=== PATIENT | female | born 1995 | race Caucasian/White ===

== ENCOUNTER 2019-07-03 00:20 | Outpatient (CLI) | payer BC, SELFPAY ==
--- NOTE | 2019-07-03 15:50 | DI.RAD_ITS ---
EXAM: XR SCOLIOSIS T-L SPINE CLINICAL HISTORY: BACK DISORDER M53.9 TECHNIQUE: Multi view scoliosis series was obtained. There is a mild left convex thoracolumbar scol iosis. No underlying bony deformity node noted in the thoracolumbar region. Intervertebral disc spa destinee are well maintained. The scoliosis is estimated at 10 degrees. COMPARISON: No exams were available for comparison FINDINGS: IMPRESSION:
--- NOTE | 2019-07-03 15:50 | DI.RAD_ITS ---
EXAM: XR CERVICAL SPINE COMP 4-5V INDICATION: BACK DISORDER M53.9,. COMPARISON: No exams were available for comparison TECHNIQUE: 2D digital imaging was performed. FINDINGS: The alignment is normal. The vertebral bodies and disc spaces are well maintained. There are no s ignificant degenerative changes. There is no prevertebral soft tissue swelling. IMPRESSION: Negative cervical spine.
== END 2019-07-03 00:40 ==
PROVIDERS: PCP Nurse Practitioner Family; Visit Provider Nurse Practitioner Family
DX: M54.2 Cervicalgia (principal); M41.85 Other forms of scoliosis, thoracolumbar region
CPT/HCPCS: 72081; 72050

== ENCOUNTER 2023-06-20 03:18 | Outpatient (CLI) | payer BC, SELFPAY ==
[2023-06-20 11:44] LABS: Panorama Kit Sent via Fed Ex
[2023-06-20 11:47] LABS: Abs Immature Grans 0.02 10^3/uL (0.0-0.06); Absolute Basophil Count 0.01 10^3/uL (0.0-0.2); Absolute Eosinophil Count 0.03 10^3/uL (0.0-0.7); Absolute Monocyte Count 0.31 10^3/uL (0.1-0.8); Absolute Neutrophil Count 3.52 10^3/uL (1.2-6.7); Basophils % 0.2; Eosinophils % 0.6; HCT 36.9 % (36.0-46.0); HGB 12.3 g/dL (11.2-15.7); Immature Grans % 0.4; Lymphocytes % 27.8; MCH 28.5 pg (27.0-33.0); MCHC 33.3 % (32.0-36.0); MCV 85 fL (80-95); MPV 10.2 fL (8.0-11.0); Monocytes % 5.8; Neutrophils % 65.2; Platelet Count 167 10^3/uL (130-400); RBC 4.32 10^6/uL (3.93-5.22); RDW 12.9 % (11.7-14.6); RDW-SD 39.7 fL; WBC 5.39 10^3/uL (4.4-10.8)
[2023-06-20 12:41] LABS: TSH (W/Ref FT4) 1.57 uIU/mL (0.36-3.74)
[2023-06-21 09:52] LABS: Rubella IgG Ab (UVM) Positive (See Note); Varicella IgG Antibody Positive (See Note)
[2023-06-21 09:58] LABS: Hepatitis B Surface Ag Negative (Negative)
[2023-06-21 11:08] LABS: HIV-1/2 Ag & Ab Screen Negative (Negative)
[2023-06-21 15:50] LABS: Hepatitis C Ab w Rflx HCV PCR Negative (Negative)
[2023-06-22 16:51] LABS: Syphilis IgG w/Reflex Nonreactive (Nonreactive)
== END 2023-06-20 03:19 | disposition home or self-care (01) ==
LOC: LBO 03:18
PROVIDERS: PCP Nurse Practitioner Family; Visit Provider Advanced Practice Midwife
DX: Z34.91 Encounter for supervision of normal pregnancy, unspecified, first trimester
CPT/HCPCS: 36415; 86787; 86803; 86850; 86900; 86901; 87340; 87389; 84443; 85025; 86762; 86780

== ENCOUNTER 2023-06-20 11:19 | Outpatient (REF) | payer BC, SELFPAY ==
--- NOTE | 2023-06-20 10:00 | PAPFT_PTH ---
PATIENT: Daniela Palacios LOC: [facility] U#:[id number] AGE/SX: 27/F ROOM: RE06/20/[address]: Amada Jackson CNM : 1995 BED: DIS: 06/20/2023 SPEC #: [id number] RECD: 06/20/23 12:40 STATUS: ROMÁN REQ #: [id number] KEEGAN: 06/20/23 10:[address]: Amada Jackson DEPT: [facility] Cytology RECD BY: Bertha Church ENTERED: 06/20/23 12:40 SP TYPE: PAPFT OTHR DR: LOLA STALEY Tissues: 1 - CX/ENDOCX FOR PAP SMEARS Procedures: PAP THIN PREP/UVM Screening Comments: [id number] (CHLAMYDIA/GC)
[2023-06-20 13:44] LABS: *AMPHETAMINES SCREEN URINE Negative (Negative); *BARBITURATES SCREEN URINE Negative (Negative); *BENZODIAZEPINES SCREEN URINE Negative (Negative); Cannabinoids THC Negative (Negative); Cocaine Screen,Urine Negative (Negative); METHADONE URINE SCREEN Negative (Negative); OPIATES URINE SCREEN Negative (Negative)
[2023-06-20 13:45] LABS: Tricyclic Antidepressants Negative (Negative)
[2023-06-21 17:05] LABS: Chlamydia Result Negative (Negative); GC Result Negative (Negative)
[2023-06-27 10:45] LABS: Buprenorphine Negative ng/mL (Cutoff: 5.0); Norbuprenorphine Negative ng/mL (Cutoff: 2.5)
== END 2023-06-20 11:20 | disposition home or self-care (01) ==
LOC: LBN 11:19
PROVIDERS: PCP Nurse Practitioner Family; Visit Provider Advanced Practice Midwife
DX: Z12.4 Encounter for screening for malignant neoplasm of cervix; Z11.3 Encounter for screening for infections with a predominantly sexual mode of transmission; Z34.91 Encounter for supervision of normal pregnancy, unspecified, first trimester
CPT/HCPCS: 80307; 80348; 87491; 87591; 88142; 87086

== ENCOUNTER 2023-06-22 02:41 | Outpatient (CLI) | payer BC, SELFPAY ==
[2023-06-22 15:03] LABS: Glucose,1 Hr (Glucola) 152 mg/dL (80-140)
== END 2023-06-22 02:42 | disposition home or self-care (01) ==
LOC: LBO 02:42
PROVIDERS: PCP Nurse Practitioner Family; Visit Provider Advanced Practice Midwife
DX: Z34.91 Encounter for supervision of normal pregnancy, unspecified, first trimester (principal)
CPT/HCPCS: 36415; 82950

== ENCOUNTER → 2023-08-14 02:25 | Outpatient (CLI) | payer BC, SELFPAY ==
--- NOTE | 2023-08-14 07:00 | DI.US_ITS ---
Exam(s) US OB 2-3 TRIMESTER W MOD EXAM: US OB 2-3 TRIMESTER W MOD CLINICAL HISTORY: 19 wk anatomy survey,z34.90. TECHNIQUE: Transabdominal obstetrical ultrasound was performed. COMPARISON: US POCUS EXAM from 05/30/2023 FINDINGS: There is a single viable intrauterine gestation with cardiac activity identified-141 bpm. Amniotic fluid: There is a normal amount of amniotic fluid. Placental location: The placenta is posterior grade 1,with no evidence of placenta previa.Distance fr om tip of placenta to the internal cervical os is 5.7 cm. ANATOMY: Most structures were identified but many were not seen within off resolution to accurately asse ss. A 3 vessel umbilical cord is seen. Four-chamber cardiac and ventricular outflow tracts were not adequately seen. facial features in cluding nose and upper lip and profile less than adequately seen due to resolution and position . Also intracranial posterior fossa as well as accuracy of upper and lower extremity visualization/a ssessment. There are no obvious abnormalities of the spinal column evident. There is no obvious abnormal ity of the anterior abdominal wall. stomach and urinary bladder are identified and there is no evidence of hydronephrosis. Dating parameters place this at approximately 20 weeks and 1 day gestational age. BPD measures 20 weeks and 1 day HC measures 19 weeks and 6 days AC measures 19 weeks and 3 days FL measures 20 weeks and 6 days Estimated weight is 332 gm-0 pounds 12 ounce Fetus is at the 43rd percentile on the Hadlock scale. IMPRESSION:: Single viable intrauterine gestation which is approximately 20 weeks and 1 day gestatio nal age, implying an HORACE of 12/31/2023. There are no obvious anomalies evident on today's study. However, many aspects of anatomy were not adequately seen for good assessment today a mostly related to the lie throughout toda y's exam. The patient has been rescheduled to return on 08/20/2023 The placenta is posterior grade 1 with no evidence of placenta previa. There is a normal amount of amniotic fluid. DATA REPOSITORY:
== END ==
PROVIDERS: PCP Nurse Practitioner Family; Visit Provider Advanced Practice Midwife
DX: Z34.92 Encounter for supervision of normal pregnancy, unspecified, second trimester (principal)
CPT/HCPCS: 76805

== ENCOUNTER 2023-10-11 03:54 | Outpatient (CLI) | payer BC, SELFPAY ==
[2023-10-11 09:10] LABS: Glucose 1 Hour 185 mg/dL
[2023-10-11 11:10] LABS: Glucose 3 Hour 109 mg/dL
== END 2023-10-11 03:55 | disposition home or self-care (01) ==
LOC: LBO 03:54
PROVIDERS: PCP Nurse Practitioner Family; Visit Provider Advanced Practice Midwife
DX: Z34.93 Encounter for supervision of normal pregnancy, unspecified, third trimester (principal)
CPT/HCPCS: 36415; 82951

== ENCOUNTER 2023-12-07 10:17 | Outpatient (REF) | payer BC, SELFPAY | END 2023-12-07 10:18 | disposition home or self-care (01) | LOC: LBN 10:17 | PROVIDERS: PCP Nurse Practitioner Family; Visit Provider Advanced Practice Midwife | DX: Z34.93 Encounter for supervision of normal pregnancy, unspecified, third trimester (principal); Z36.85 Encounter for antenatal screening for Streptococcus B; Z3A.36 36 weeks gestation of pregnancy | CPT/HCPCS: 87081 ==

== ENCOUNTER → 2023-12-14 00:31 | Outpatient (CLI) | payer BC, SELFPAY ==
--- NOTE | 2023-12-14 06:45 | DI.US_ITS ---
Exam(s) US OB DESTINY WEIGHT EXAM: US OB DESTINY WEIGHT CLINICAL HISTORY: size less than dates,confirm presentation,O26.849,fundal ht low. TECHNIQUE: Transabdominal obstetrical ultrasound performed. COMPARISON: US US OB 2-3 TRIMESTER W MOD from 08/14/2023 US US OB F/U FACIAL/LVOT/RVOT from 08/20/2023 FINDINGS:: Number of fetuses: One. position: Vertex. Placental location: Posterior. No evidence of previa. BIOMETRIC DATA: BPD: 93mm = 37+ 6 weeks HC: 329mm = 37+ 3 weeks AC: 305mm = 34+3 weeks FL: 69 mm = 35+4 weeks EFW: 2660 Gms = 11% Composite Age: 36+ 2 weeks HORACE: 09 January 2024 Heart Rate: BPM Amniotic fluid index: 8.5 cm, at the lower range of normal. IMPRESSION: Fetus in vertex position. Estimated weight 11th percentile. Biometric measurements measuring 1 week 2 days below expected based on previous dating. DATA REPOSITORY:
== END ==
PROVIDERS: PCP Nurse Practitioner Family; Visit Provider Advanced Practice Midwife
DX: O26.843 Uterine size-date discrepancy, third trimester (principal); Z3A.36 36 weeks gestation of pregnancy
CPT/HCPCS: 76816

== ENCOUNTER 2023-12-27 07:29 | Outpatient (CLI) | payer BC, SELFPAY ==
[2023-12-27 07:41] VITALS: BP 121/78; PULSE 123; TEMP 37
[2023-12-27 08:27] VITALS: BP 121/78; PULSE 123
--- NOTE | 2023-12-27 09:03 | W.OBNST ---
Date of service: 12/27/23 Time of Service: 09:03 NST Evaluation Reason for NST Reasons for Nonstress Test: OTHER, SEE COMMENT Reason for NST Other: ?SGA Gestational Age Gestational Age in Weeks and Days: 39 Weeks and 3Days Test and Monitor Explained Test/Monitor Explained: Test Explained, Monitor Explained and Patient Verbalized Understanding Vital Signs Blood Pressure: 121/78 Pulse: 123 Temperature: 98.6 F NST Information Date on Monitor: 12/27/23 Time on Monitor: 07:30 Date off Monitor: 12/27/23 Time off Monitor: 08:00 Total Time on Monitor: 30 NST Interventions: PO Hydration and Notify Provider NST Evaluation Patient States Movement: Present FHR Baseline: 130 Variability: Moderate 6-25 bpm Accelerations: 15x15 Decelerations: None NST Results: Reactive Note Ultrasound Done: DESTINY Total DESTINY: 11.8 Other Pertinent Findings: Heart Rate (130), Presentation (cephalic ROP) and Placental Location (posterior) Coding for DESTINY w/NST: Completed Exam. NST Note NST Reviewed and Verified by: Amada Jackson
[2023-12-27 09:04] VITALS: BP 121/78; PULSE 123; TEMP 37
== END 2023-12-27 08:29 | disposition home or self-care (01) ==
LOC: BCD 07:31 → OBS 07:36
PROVIDERS: PCP Nurse Practitioner Family; Visit Provider Advanced Practice Midwife
DX: Z3A.39 39 weeks gestation of pregnancy (principal); O36.5931 Maternal care for other known or suspected poor fetal growth, third trimester, fetus 1
CPT/HCPCS: 59025

== ENCOUNTER 2024-01-05 16:39 | Inpatient (IN) | payer BC, SELFPAY ==
[2024-01-05] VITALS (63 sets, daily range): BP systolic 117–152; BP diastolic 56–82; PULSE 83–223; RESP 18; TEMP 36.6–36.9; O2SAT 83–100; BMI 37.1
--- NOTE | 2024-01-05 16:40 | W.OBNST ---
Date of service: 01/05/24 Time of Service: 13:00 NST Evaluation Reason for NST Reasons for Nonstress Test: OTHER, SEE COMMENT Reason for NST Other: rule out labor Gestational Age Gestational Age in Weeks and Days: 39 Weeks and 3Days Test and Monitor Explained Test/Monitor Explained: Test Explained, Monitor Explained and Patient Verbalized Understanding Vital Signs Blood Pressure: 123/76 Pulse: 104 Temperature: 97.9 F Urine Results Urine Protein: Negative Urine Ketones: Negative Urine Glucose: Negative Urine Blood: Negative NST Information Date on Monitor: 01/05/24 Time on Monitor: 12:28 Date off Monitor: 01/05/24 Time off Monitor: 13:00 Total Time on Monitor: 32 NST Interventions: PO Hydration Contraction Frequency: irreg NST Evaluation Patient States Movement: Present FHR Baseline: 130 Variability: Moderate 6-25 bpm Accelerations: 15x15 Decelerations: None NST Results: Reactive Note Ultrasound Done: N/A. NST Note NST Reviewed and Verified by: Amada Jackson
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
[2024-01-05 17:11] LABS: HCT 40.1 % (36.0-46.0); HGB 13.5 g/dL (11.2-15.7); MCH 28.8 pg (27.0-33.0); MCHC 33.7 % (32.0-36.0); MCV 86 fL (80-95); Platelet Count 150 10^3/uL (130-400); RBC 4.69 10^6/uL (3.93-5.22); RDW 14.3 % (11.7-14.6); RDW-SD 43.9 fL; WBC 9.07 10^3/uL (4.4-10.8)
--- NOTE | 2024-01-05 19:53 | PGE_ITS ---
Date of service: 01/05/24 Time of Service: 19:53 Informed Consent Informed Consent: Regional Anesthesia and Risk,Benefits,Alternatives Discussed Pelvic Exam Dilation: 3.5 Effacement (%): 100 station: -2 Cervix Position: anterior Consistency: soft Contractions Monitor Mode: External Contraction Frequency(min): 3-4 Contraction Duration(sec): 60 Intensity: Moderate Fetus A Monitor: External (US) Heart Rate Baseline: 130 Variability: Moderate (6-25 BPM) Categories: Category I Accelerations: Present Decelerations: None and Early Amniotic Membrane Status: Intact Assessment and Plan Assessment and plan (1) Normal labor: Status: Acute Assessment and plan: A: Early labor throughout the afternoon, becoming more active Need for pain management Category 1 tracing w/earlies noted P: ELEVATOR REPAIRER APPRENTICE paged, IV access initiated Expect epidural anesthesia induction shortly Anticipate Objective Temp Pulse Resp BP Pulse Ox 98.4 F 102 H 18 131/82 99 01/05/24 16:43 01/05/24 19:49 01/05/24 16:43 01/05/24 19:49 01/05/24 16:43 Laboratory Results WBC 9.07 10^3/uL (4.4-10.8) 01/05/24 17:00 RBC 4.69 10^6/uL (3.93-5.22) 01/05/24 17:00 Hgb 13.5 g/dL (11.2-15.7) 01/05/24 17:00 Hct 40.1 % (36.0-46.0) 01/05/24 17:00 MCV 86 fL (80-95) 01/05/24 17:00 MCH 28.8 pg (27.0-33.0) 01/05/24 17:00 MCHC 33.7 % (32.0-36.0) 01/05/24 17:00 RDW 14.3 % (11.7-14.6) 01/05/24 17:00 Plt Count 150 10^3/uL (130-400) 01/05/24 17:00 MPV 11.0 fL (8.0-11.0) 01/05/24 17:00 Patient ABO/Rh O Positive 01/05/24 17:00 Antibody Screen NEGATIVE 01/05/24 17:00 Vital Signs Reviewed: Yes Subjective Interval history since last seen: Contractions are stronger, nausea is persistent, pt breathing heavily with pains and holding tightly onto her partner's hand, feeling shivers and having difficulty walking due to discomforts, requests epidural anesthesia now.
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
--- NOTE | 2024-01-05 21:03 | PGE_ITS ---
Date of service: 01/05/24 Time of Service: 21:03 Informed Consent Informed Consent: Regional Anesthesia and Risk,Benefits,Alternatives Discussed Pelvic Exam Dilation: 3.5 Effacement (%): 100 station: -2 Cervix Position: anterior Contractions Monitor Mode: Internal Contraction Frequency(min): 2-3 min IUPC resting tone (mmHg): 10 IUPC peak pressure (mmHg): 80 IUPC [place] units: 180 Fetus A Monitor: Internal (FSE) Heart Rate Baseline: 130 Variability: Minimal (1-5 BPM) Categories: Category II Decelerations: Prolonged (10 minutes, 70-80 bpm) Amniotic Membrane Status: Ruptured Rupture Method: Spontaneous Amniotic Fluid: Other Amount: small, color undetermined Date of Membrane Rupture: 01/05/24 Time of Membrane Rupture: 20:10 Assessment and Plan Assessment and plan (1) Normal labor: Status: Acute Assessment and plan: A: Category 2 tracing with prolonged decel x1 now resolved Move ahead with epidural placement Early decels are recurrent with occasional variable, minimal variability P: Assess progress once pt is comfortable Continue to evaluate for appropriate route of delivery Dr. Toure and ETHNOGRAPHIC MATERIALS CONSERVATOR inhouse at this time Objective Vital Signs Reviewed: Yes Objective Narrative Objective Narrative: ETHNOGRAPHIC MATERIALS CONSERVATOR in room discussing informed consent with pt Prolonged decel occured, causing pause in anesthesia process Dr. Toure paged to center 02 per mask, IV bolus, postion changes, and FSE applied @ 2029 SROM noted at time of FSE placement, cvx unchanged from previous exam FHT recovery noted though with minmal variability and early/variable decels persisting Dr. Toure in room reviewing tracing and placed IUPC Subjective Interval history since last seen: Pt able to move from position to position in the bed for intrauterine resuscitation for prolonged decel which resolved after FSE placed and turned to LLP, contractions remain painful, nausea with emesis.
--- NOTE | 2024-01-05 21:24 | W.ANESNEU ---
Epidural/Spinal Catheter Date Performed: 01/05/24 Procedure Start: 21:03 Procedure Stop: 21:08 Requesting Provider: Amada Jackson Procedure Location: Obstetrics Reason Performed: Labor Epidural Standard Monitors Applied: Blood Pressure and SpO2 Patient Position: Sitting Sedation Given (Indicate Dose Given): No Sedation given Patient Mental Status: Awake Sterility: Hand Hygiene, Surgical Cap, Surgical Mask, Sterile Gloves, Sterile Drape/Sheet and Chlorhexidine Procedure Location: L2-L3 Interspace Epidural Needle: Tuohy 17 Guage Needle Length: 3.5 Inch Needle Approach: Midline Epidural Procedure: ALEJANDRO to Saline Used Catheter Placed?: Catheter Placed (wirereinforced) Test Dose (Indicate Dose Given): 3ml 1.5% Lidocaine with 1:200K Epinephrine Given and Negative Test Dose Loss of Resistance Depth (cm): 6 Catheter depth at skin (cm): 11 Dressing: Sorbaview Dressing Placed, Mastisol Used and Dressing reinforced with Tape Epidural Provider Bolus (Indicate Dose Given): Total Ropivacaine 0.1% with Fentanyl 2mcg/ml Given from pump. (ml) Dose:: 7 mL Additives (Indicate Dose Given ): None Infusion Medication: Medication Infusion Began Medication Infusion: Ropivacaine 0.1% with Fentanyl 2mcg/ml Maintenance Infusion Rate (ml/hour): 10 PCEA Bolus Dose (ml): 5 Block Level: N/A Paresthesia: None Ultrasound: Used to kolby site Number of Attempts (See previous attempts in note section): 1 Procedure Tolerated: No Complications and Patient tolerated well Procedure Outcome: Successful Performed By: Mikey Burnett
[2024-01-05] MEDS: FentaNYL/ROPIvacaine 2 mcg/ml and 0.1% 200 ML CADD Cassette EP (21:40)
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
--- NOTE | 2024-01-05 22:48 | W.PM.OBNL1 ---
Date of service: 01/05/24 Time of Service: 22:48 Informed Consent Informed Consent: Section Delivery, Regional Anesthesia and Risk,Benefits,Alternatives Discussed Contractions Monitor Mode: Internal Contraction Frequency(min): Every 3 to 4 Contraction Duration(sec): 40-60 Intensity: Mild/Moderate Fetus A Monitor: Internal (FSE) Heart Rate Baseline: 120 Presentation: Cephalic Variability: Minimal (1-5 BPM) Categories: Category II FHR Rhythm: Regular Characteristics: Normal Accelerations: Absent Decelerations: Early Recurrence: Recurrent Amniotic Membrane Status: Ruptured Assessment and Plan Assessment and plan (1) heart rate non-reassuring affecting management of mother: Status: Acute Assessment and plan: Patient was counseled regarding risks of including infection damage to surrounding structures, injury to bowel bladder blood vessels and ureters. She was counseled regarding the need for transfusion and possible hysterectomy. Informed consent was obtained her questions were answered. OR crew has been notified. Objective Temp Pulse Resp BP Pulse Ox 98.4 F 99 H 18 120/73 98 01/05/24 16:43 01/05/24 22:13 01/05/24 16:43 01/05/24 22:13 01/05/24 22:06 Laboratory Results WBC 9.07 10^3/uL (4.4-10.8) 01/05/24 17:00 RBC 4.69 10^6/uL (3.93-5.22) 01/05/24 17:00 Hgb 13.5 g/dL (11.2-15.7) 01/05/24 17:00 Hct 40.1 % (36.0-46.0) 01/05/24 17:00 MCV 86 fL (80-95) 01/05/24 17:00 MCH 28.8 pg (27.0-33.0) 01/05/24 17:00 MCHC 33.7 % (32.0-36.0) 01/05/24 17:00 RDW 14.3 % (11.7-14.6) 01/05/24 17:00 Plt Count 150 10^3/uL (130-400) 01/05/24 17:00 MPV 11.0 fL (8.0-11.0) 01/05/24 17:00 Patient ABO/Rh O Positive 01/05/24 17:00 Antibody Screen NEGATIVE 01/05/24 17:00 Vital Signs Reviewed: Yes Subjective Patient Reports: No new Complaints Interval history since last seen: Patient had a cervical exam approximately 2145. Approximately 5 cm dilated -1 station and continued category 2 heart rate tracing secondary to variable decelerations and minimal variability. I spoke to the patient and her and recommended to proceeding with a delivery for indications. The agreeable to the plan Results Hemoglobin/Hematocrit: Hgb 13.5 g/dL (11.2-15.7) 01/05/24 17:00 Hct 40.1 % (36.0-46.0) 01/05/24 17:00
[2024-01-05] MEDS: AZITHROMYCIN 500 MG in Normal Saline 250 ML 250 MG IVPB (23:03)
[2024-01-05] MEDS: Sodium Citrate 30 ML CUP PO (23:04)
[2024-01-05] MEDS: ceFAZolin 2 GM/50 ML BAG IVPB (23:31)
[2024-01-06] VITALS (53 sets, daily range): BP systolic 100–155; BP diastolic 59–85; PULSE 99–167; RESP 16–18; TEMP 37–37.3; O2SAT 83–100
--- NOTE | 2024-01-06 00:48 | W.PM.OBNL1 ---
Date of service: 01/06/24 Time of Service: 00:49 Informed Consent Informed Consent: Section Delivery, Regional Anesthesia and Risk,Benefits,Alternatives Discussed Objective Temp Pulse Resp BP Pulse Ox 98.4 F 140 H 18 120/73 96 01/05/24 16:43 01/05/24 23:21 01/05/24 16:43 01/05/24 22:13 01/05/24 23:21 Laboratory Results WBC 9.07 10^3/uL (4.4-10.8) 01/05/24 17:00 RBC 4.69 10^6/uL (3.93-5.22) 01/05/24 17:00 Hgb 13.5 g/dL (11.2-15.7) 01/05/24 17:00 Hct 40.1 % (36.0-46.0) 01/05/24 17:00 MCV 86 fL (80-95) 01/05/24 17:00 MCH 28.8 pg (27.0-33.0) 01/05/24 17:00 MCHC 33.7 % (32.0-36.0) 01/05/24 17:00 RDW 14.3 % (11.7-14.6) 01/05/24 17:00 Plt Count 150 10^3/uL (130-400) 01/05/24 17:00 MPV 11.0 fL (8.0-11.0) 01/05/24 17:00 Patient ABO/Rh O Positive 01/05/24 17:00 Antibody Screen NEGATIVE 01/05/24 17:00 Subjective Interval history since last seen: Upon arrival in the OR room 3. Pt was transfered to the OR table and placed in sitting position. Epidural catheter was removed and placed and spinal anesthesia was administered without difficulty. Pt was placed in the dorsal supine position with a leftward tilt and FHR 140 via hand held doppler. I placed a gloved hand into the patient's vagina to begin vaginal prep and noted her cervix to be completely dilated and +2 staion. OR crew was informed and decision was made to allow pt to push with contractions. The spinal anesthesia prevented her from feeling the contractions to assist with maternal expulsive efforts. I placed a Kiwi vacuum over the vertex and over the course of one contraction and three pushes I applied traction with each maternal expulsive effort. The Kiwi vacuum was deflated, kept in position and reinflated with the next contraction. Over the course of three maternal expulsive efforts two pulls were performed. The vacuum was removed from the head. 20min later a final application of the Kiwi cup was performed and the over the course of one contraction and three maternal expulsive efforts the two pulls were performed with the procedure stopped after the Kiwi cup pop off. The heart rate remained reassuring by external tocometer and the decision was made to not perform the delivery and instead to transfer the patient to the Center for continued labor with the intention of having a vaginal . Pt and her were agreeable to the plan. Results Hemoglobin/Hematocrit: Hgb 13.5 g/dL (11.2-15.7) 01/05/24 17:00 Hct 40.1 % (36.0-46.0) 01/05/24 17:00
[2024-01-06] MEDS: miSOPROStol 200 MCG TAB 600 MCG SL (02:40)
--- NOTE | 2024-01-06 03:15 | OBVDS_ITS ---
Date of service: 01/06/24 Time of Service: 03:16 OB Labor/ Delivery Information Baby A Delivery Delivery Method: Spontaneaous Presentation: Cephalic Cephalic Position: Vertex Vertex Position: Right Occipital Anterior Cord Description-Baby A: 3 Vessels, Nuchal Cord (loose nuchal cord x2, unwound from neck), Reduced and Other (cord measures 39 inches long) Cord Description Comment: very long cord, pencil thin, normal coiling Amniotic Fluid: Clear Estimated Blood Loss: 700 ml Delivery Outcome: Liveborn Transferred: Remains with Mother Note: Non-urgent C/S called for intolerance of labor evidenced by category 2 tracing for 2.5 hrs, minimal variability with periodic recurrent variable and early decels, one 10 minute prolonged decel (bradycardia) and then a 4 minute prolonged decel, pt remote from delivery @ 5 cm dilation and -2 station. Pt transported to OR after surgical consent was obtained and pt's questions were addressed, epidural changed to spinal anesthesia and pt was positioned on table. Bloody show noted during surgical prep, Dr. Donovan performed vaginal exam to discover full dilation and head at +2 station. Pt coached to push though spinal block was dense and while maternal efforts were strong descent was minimal. FHT's per doptone were 80-100, VAVD was attempted by Dr. Donovan with some descent accomplished. EFM was applied and at midnight the FHT pattern returned to category 1. Decision was made to abandon vacuum efforts as status had improved to reassuring, C/S cancelled and pt returned to center @ 0030, OR team remaining inhouse until delivery accomplished. Pt positioned in left lateral tilt, plan of care to allow passive descent and resume pushing efforts after 30-45 minutes as long as tracing remained category 1. Coached pushing with CNM attending resumed at 0130, infante removed. With spinal still in effect, less than an hour later of a vigorous female infant over attempted intact perineum, loose nuchal cord x2 reduced overhead, shoulders delivered easily, terminal meconium noted, bulb sx on field and to mother's arms for stimulation and S2S. Cord ceased pulsating and was clamped then cut by FOB, pitocin bolus begun, cord blood collected, Au placenta delivered intact with 3VC. Cord measured @ 39 inches in length and thin in appearance. 1st degree perineal laceration with left labial extension and superficial but weeping posterior introital laceration all repaired with 3.0 Vicryl under effective anesthesia from spinal though pt's use of her legs was returning. Misoprostel 600 mcg given PO as precaution, EBL 700 ml due to blood loss from lacerations, fundus firm below umbilicus, vaginal sweep performed and no clots were returned. Apgars 7/9, strong family bonding observed, weight 3070 gms. Providers Nurse Production Team Advisor: Amada Jackson Basting Puller: Mikey Burnett Nurse: Danica Farr Nurse: Gardenia Hester Labor/Delivery Information Number of Babies in Womb: 1 Steroids Given: None Reason Steroids Not Administered: N/A Group Beta Strep: N/A Antibiotics Administered: Yes Number of Doses of Antibiotics: 1 Rubella Status: Immune Blood Type: O+ Varicella Immunity: Immune Medication in Delivery: spinal Shoulder Dystocia: No Stages of Labor Onset of Labor Date: 01/05/24 Onset of Labor Time: 16:45 Complete Dilatation Date: 01/05/24 Complete Dilatation Time: 23:45 Labor - Stage 1 Duration: 7 hours and 0 minutes ROM Baby A: 01/05/24 ROM Baby A: 20:10 Infant Delivery Date-Baby A: 01/06/24 Delivery Time-Baby A: 02:22 Labor Stage 2 Duration: 2 hours and 37 minutes Placenta Delivery Date-Baby A: 01/06/24 Placenta Delivery Time-Baby A: 02:37 Labor-Stage 3 Duration: 15 minutes Total Length of Labor-Baby A: 9 hours and 37 minutes Placenta Cultured: No Placenta Status: Delivered Baby A Infant Gender: Female Gestational Status: Term (39-41.6 wks) weight: 6 lb 12.291 oz Weight Comment: 3070 gms Score-1 Minute Interval(Baby A) Heart Rate-1 minute: 100 BPM or Greater Respiratory Effort- 1 minute: Spontaneous/Strong Cry Muscle Tone-1 minute: Minimal Flexion/Extension Reflex Response-1 minute: Prompt Response Color-1 minute: Pallor or Cyanosis Score-5 Minute Interval(Baby A) Heart Rate- 5 minute: 100 BPM or Greater Respiratory Effort-5 minute: Spontaneous/Strong Cry Muscle Tone-5 minute: Active Movement Reflex Response-5 minute: Prompt Response Color-5 minute: Bluish Hands or Feet
--- NOTE | 2024-01-06 03:30 | NUR.NOTE ---
2326 to the or . dr oropeza was prepping pt for abdominal cleansing and looked down and noticed bloody show and checked the pt at 2345 and found her to be fully dialated . [address] it popped off and then 0000 fhr returned to baseline of 135 and indication for csection was gone. pt was retured to ob unit to continue with laboring process. dr oropeza anesthesia and or crew remained in house and available. 01/06/24 0222 spontaneous vaginal delivery of baby girl
[2024-01-06] MEDS: Ondansetron 4 MG/2 ML VIAL 8 MG IVP (04:23)
[2024-01-06] MEDS: Hamamelis Leaf/Glycerin 100 EACH BOX PR (09:45)
[2024-01-06] MEDS: Dibucaine 1% 28 GM TUBE TP (09:45)
--- NOTE | 2024-01-06 12:24 | W.ANESPOSTOP ---
Postoperative Evaluation Date, Time and Location Date Performed: 01/06/24 Time Performed: 12:24 Patient Location: Obstetrics Vital Signs Most Recent Imported Vital Signs: Most Recent Vital Signs Temp Pulse Resp BP Pulse Ox 37 C 131 H 18 122/82 100 01/06/24 08:00 01/06/24 08:00 01/06/24 10:00 01/06/24 08:00 01/06/24 08:00 Pain Score Most Recent Pain Score: Most Recent Pain Score Pain Level 2 01/06/24 10:00 Assessment Mental Status: Awake (Alert & Oriented to Patient Baseline) Airway and Respiratory Function: Patent airway with normal (patient baseline) respiratory exam Cardiovascular Function: Hemodynamically Stable Hydration Status: Adequately Hydrated Nausea & Vomiting: No Nausea or Vomiting Pain: Pain is tolerable per patient Peripheral Nerve Block: Patient did not receive a nerve block
[2024-01-06] MEDS: Acetaminophen 325 MG TAB 650 MG PO (20:03)
[2024-01-07 03:08] VITALS: BP 97/68; PULSE 132
--- NOTE | 2024-01-07 05:38 | W.PM.OBPNV1 ---
Date of service: 01/07/24 Time of Service: 05:38 Assessment and Plan Assessment and plan (1) Term delivered: Status: Acute Assessment and plan: A: PPD#1, nml recovery off to a good start Processing experience, overall satisfied P: Pt plans d/c to home tomorrow Plans condoms for BCM (2) Encounter for care of lactating mother: Status: Acute Subjective Subjective Patient comments: No complaints, Pain well controlled, Tolerating diet and Flatus present Patient's Mood: happy [place] baby status: Doing well, Nursing well, Rooming in and Strong Bonding Observed feeding status: Exclusively breast feeding Exam Physical Exam Vital signs: Temp Pulse Resp BP Pulse Ox 99 F 132 H 16 97/68 L 100 01/06/24 20:35 01/07/24 03:08 01/06/24 20:35 01/07/24 03:08 01/06/24 20:35 Vital Signs Reviewed: Yes Constitutional Constitutional: no acute distress and cooperative HEENT Exam HEENT Exam: Normal Neck Exam Neck Exam: Normal Breast Exam Bilateral: Breast Exam: Normal and Soft Nipple Exam: Normal and Uninjured Respiratory Exam Respiratory Exam: Normal Cardiovascular Exam Cardiovascular Exam: Normal Abdominal Exam Abdomen: Other (soft, nontender) Fundal Exam Fundus: Below Umbilicus and Firm Rectal Exam Rectal Exam: Normal Exam Perineum: Repair Intact Extremities Exam Extremity Exam: Normal, Full ROM and Warm to Touch Back/Spine/Pelvis Exam Back Exam: Normal Skin Exam Skin Exam: Normal Neurological Exam Neurological Exam: Normal Psychiatric Exam Psychiatric Exam: Normal
[2024-01-07 08:10] VITALS: BP 114/82; PULSE 139; RESP 12; TEMP 37
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
[2024-01-07 15:15] VITALS: PULSE 105
== END 2024-01-07 18:08 | disposition home or self-care (01) | DRG 806 ==
LOC: BCD 16:56 → OBS 16:56
PROVIDERS: Obstetrics & Gynecology Gynecology; Admitting Provider Advanced Practice Midwife; PCP Nurse Practitioner Family; Visit Provider Advanced Practice Midwife
PROC: 10E0XZZ Delivery of Products of Conception, External Approach (ICD-10-PCS; CPT 59409; 2024-01-05 23:50)
DX: F84.5 Asperger's syndrome; Z37.0 Single live birth; O48.0 Post-term pregnancy; Z3A.40 40 weeks gestation of pregnancy; O69.81X0 Labor and delivery complicated by cord around neck, without compression, not applicable or unspecified; O77.0 Labor and delivery complicated by meconium in amniotic fluid; O70.0 First degree perineal laceration during delivery; O69.89X0 Labor and delivery complicated by other cord complications, not applicable or unspecified; O99.214 Obesity complicating childbirth; E66.9 Obesity, unspecified; O99.344 Other mental disorders complicating childbirth; F41.8 Other specified anxiety disorders; O76 Abnormality in fetal heart rate and rhythm complicating labor and delivery
CPT/HCPCS: 36415; 85027; 86850; 86900; 86901; 59025; J0131; J0456; J0690; J1100; J1885; J2274; J2371; J2405; J3010

== ENCOUNTER 2024-02-17 12:24 | Outpatient (CLI) | payer BC, SELFPAY ==
[2024-02-17 13:02] VITALS: BP 120/76; PULSE 90; RESP 16; TEMP 36.6; O2SAT 99
[2024-02-17 13:23] LABS: Abs Immature Grans 0.02 10^3/uL (0.0-0.06); Absolute Basophil Count 0.02 10^3/uL (0.0-0.2); Absolute Eosinophil Count 0.07 10^3/uL (0.0-0.7); Absolute Lymphocyte Count 2.05 10^3/uL (1.2-3.4); Absolute Monocyte Count 0.28 10^3/uL (0.1-0.8); Absolute Neutrophil Count 2.92 10^3/uL (1.2-6.7); Basophils % 0.4 %; Eosinophils % 1.3 %; HCT 37.3 % (36.0-46.0); HGB 11.9 g/dL (11.2-15.7); Immature Grans % 0.4 %; Lymphocytes % 38.2 %; MCH 27.5 pg (27.0-33.0); MCHC 31.9 % (32.0-36.0); MCV 86 fL (80-95); MPV 10.2 fL (8.0-11.0); Monocytes % 5.2 %; Neutrophils % 54.5 %; Platelet Count 185 10^3/uL (130-400); RBC 4.32 10^6/uL (3.93-5.22); RDW 13.1 % (11.7-14.6); RDW-SD 40.9 fL; WBC 5.36 10^3/uL (4.4-10.8)
--- NOTE | 2024-02-17 17:19 | W.PM.PROGNOT ---
Date of Service Date of service: 02/17/24 Time of Service: 15:00 Assessment and Plan Assessment and plan (1) Vaginal bleeding: Status: Acute Assessment and plan: A: 6 wks PP, increased vaginal bleeding, seen on BC No longer P: CBC is negative for infection or anemia Pelvic exam unremarkable other than menstrual type flow RTO tomorrow for f/up at regular scheduled 6 wk PP appt Warning signs reviewed such as increased pain, appearance of clots, or saturated pads qHR Subjective Subjective Interval history since last seen: 6 wks , had stopped vaginal bleeding until 1 week ago when she thought she started a normal period, not using hormonal BCM, not . Today she had a large gush of blood and is having a heavier flow, no large clots, mild cramps. Exam Const General: cooperative, healthy appearing and no acute distress Orientation: alert, awake and oriented x3 Resp Effort & Inspection: normal respiratory effort and able to speak in complete sentences Cardio Rate: regular rate Rhythm: regular rhythm External Female Exam: normal external appearance Bimanual Exam- Vagina & Uterus: normal bimanual exam, normal palpation, uterine size normal, consistency normal and uterine mobility normal Bimanual Exam- Adnexa, other: normal adnexae Other: Apparent menstrual flow noted, no clots. Uterus normally involuted @ 6 wks PP. No pain on palpation. Psych Mood: congruent mood Affect: normal affect Attitude: cooperative Thought Process: normal Objective Last Vital Signs Temp 97.9 F 02/17/24 13:02 Pulse 90 02/17/24 13:02 Resp 16 02/17/24 13:02 BP 120/76 02/17/24 13:02 Pulse Ox 99 02/17/24 13:02 Laboratory Results - last 24 hr 02/17/24 13:15 WBC 5.36 RBC 4.32 Hgb 11.9 Hct 37.3 MCV 86 MCH 27.5 MCHC 31.9 L RDW 13.1 Plt Count 185 MPV 10.2 Immature Gran % 0.4 Neutrophils % 54.5 Lymphocytes % 38.2 Monocytes % 5.2 Eosinophils % 1.3 Basophils % 0.4 Nucleated RBC % 0.0 Absolute Neutrophils 2.92 Absolute Lymphocytes 2.05 Absolute Monocytes 0.28 Absolute Eosinophils 0.07 Absolute Basophils 0.02 Time Spent with Patient Time Spent with Patient: <25 minutes Time was spent: preparing to see the patient(eg.review tests), obtaining and/or reviewing separately otained hiistory, ordering medications,tests, procedures, indepentently interpreting results and counseling the patient
== END 2024-02-17 14:00 | disposition home or self-care (01) ==
LOC: BCD 12:25 → OBS 13:00
PROVIDERS: Visit Provider Advanced Practice Midwife
DX: N93.9 Abnormal uterine and vaginal bleeding, unspecified (principal)
CPT/HCPCS: 36415; 99211; 85025